=== PATIENT | male | born 1955 | race Caucasian/White ===

== ENCOUNTER 2017-08-15 09:38 | Emergency (ER) | payer MEDICARE ==
[~2017-08-15] VITALS: Ht 180.3 cm; Wt 82.0 kg
[2017-08-15 09:51] VITALS: BP 136/62; PULSE 81; RESP 18; TEMP 98.6; O2SAT 97
[2017-08-15] MEDS ORDERED: NOVONP2 SQ (10:10)
[2017-08-15] MEDS ORDERED: GEMF600T PO (10:10)
[2017-08-15] MEDS ORDERED: LISI40TA PO (10:10)
[2017-08-15] MEDS ORDERED: CILO100T PO (10:10)
[2017-08-15] MEDS ORDERED: ALLO300T2 PO (10:10)
[2017-08-15] MEDS ORDERED: METF500T PO (10:10)
[2017-08-15] MEDS ORDERED: ASPI81CH6 CHEW (10:10)
[2017-08-15] MEDS ORDERED: NOVO7030P2 SQ (10:10)
[2017-08-15] MEDS ORDERED: ATOR40TA16 PO (10:10)
[2017-08-15] MEDS ORDERED: METO100T PO (10:10)
[2017-08-15] MEDS ORDERED: SODIUM CHLORIDE 0.9% FLUSH 10 ML FLUSH IV FLUSH PRN (10:30)
[2017-08-15 10:37] VITALS: RESP 16; O2SAT 95
[2017-08-15 10:54] LABS: AUTOMATED NEUTROPHIL # 6.9 TH/MM3 (1.8-7.7); BASOPHIL # 0.1 TH/MM3 (0-0.2); BASOPHIL % 0.6 % (0.0-2.0); EOSINOPHIL # 0.1 TH/MM3 (0-0.4); EOSINOPHIL % 0.8 % (0.0-4.0); HEMATOCRIT 38.6 % (39.0-51.0); HEMOGLOBIN 13.3 GM/DL (13.0-17.0); LYMPH % 15.2 % (9.0-44.0); LYMPHOCYTE # 1.4 TH/MM3 (1.0-4.8); MEAN CELL VOLUME 89.5 FL (80.0-100.0); MEAN CORPUSCULAR HEMOGLOBIN 30.9 PG (27.0-34.0); MEAN CORPUSCULAR HGB CONC 34.6 % (32.0-36.0); MEAN PLATELET VOLUME 8.7 FL (7.0-11.0); MONO % 10.6 % (0.0-8.0); NEUT % 72.8 % (16.0-70.0); PLATELET COUNT 186 TH/MM3 (150-450); RED BLOOD COUNT 4.31 MIL/MM3 (4.50-5.90); RED CELL DISTRIBUTION WIDTH 14.7 % (11.6-17.2); WHITE BLOOD COUNT 9.5 TH/MM3 (4.0-11.0)
[2017-08-15 11:16] LABS: BICARBONATE 22.5 MEQ/L (21.0-32.0); CALCIUM 8.3 MG/DL (8.5-10.1); CREATININE 1.1 MG/DL (0.60-1.30)
[2017-08-15] MEDS ORDERED: SODIUM CHLOR 0.9% 1000 ML INJ 1,000 ML IV ONE (11:30)
[2017-08-15] MEDS ORDERED: IOHEXOL 350 MG/ML 10 ML VIAL (for RAD DIAG) IVCONTRAST ONE (11:56)
[2017-08-15] MEDS ORDERED: CIPROFLOXACIN 400 MG PREMIX 200 ML IV ONE (12:00)
--- NOTE | 2017-08-15 12:20 | PD ---
HPI Chief Complaint: Facial Pain or Swelling Time Seen by Provider: 10:19 Travel History International Travel<30 days: No Contact w/Intl Traveler<30days: No Traveled to known affect area: No History of Present Illness HPI Patient is a 62 year old male diabetic presents to the ER with a two day history of left sided facial swelling redness and pain. Denies discharge from the left ear. Denies fever. 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 States symptoms for 2 days , worsening, left face, context as above. PFSH Past Medical History Asthma: Yes Cardiovascular Problems: Yes High Cholesterol: Yes COPD: Yes Diabetes: Yes Patient Takes Glucophage: Yes Gout: Yes Hypertension: Yes Medical other: Yes (PAD) Myocardial Infarction: Yes Triglycerides - High: Yes Tetanus Vaccination: < 5 Years Past Surgical History Other Surgery: Yes Social History Alcohol Use: Yes Tobacco Use: Yes Substance Use: No Allergies-Medications (Allergen,Severity, Reaction): Coded Allergies: Penicillins (Verified Allergy, Severe, 08/15/17) Reported Meds & Prescriptions Reported Meds & Active Scripts Active Ciprodex Otic Drops (Ciprofloxacin-Dexamethasone Otic Drops) 0.3-0.1% Susp 4 Drop LEFT EAR BID Doxycycline Hyclate 100 Mg Cap 100 Mg PO BID 7 Days Cipro (Ciprofloxacin HCl) 500 Mg Tab 500 Mg PO BID 7 Days Reported Novolin N Inj (Insulin Human NPH) 1,000 Unit/10 Ml Vial 20 Units SQ HS Novolin 70-30 Inj (Insulin Human Isoph/Insulin Regular) 1,000 Unit/10 Ml Vial 1 Units SQ Atorvastatin (Atorvastatin Calcium) 40 Mg Tab 40 Mg PO HS Allopurinol 300 Mg Tab 300 Mg PO DAILY Lisinopril 40 Mg Tab 40 Mg PO DAILY Aspirin Low Dose (Aspirin) 81 Mg Chew 81 Mg CHEW DAILY Metformin (Metformin HCl) 500 Mg Tab 500 Mg PO DAILY With a meal Metoprolol Tartrate 100 Mg Tab 100 Mg PO DAILY Cilostazol 100 Mg Tab 100 Mg PO BID Gemfibrozil 600 Mg Tab 600 Mg PO BIDAC Take 30 minutes prior to breakfast and dinner. Review of Systems Except as stated in HPI: all other systems reviewed are Neg Physical Exam Narrative GENERAL: Well-developed well-nourished no obvious distress. SKIN: Left side of the face particularly dependent does have some induration and erythema about it. Appears to bridge up right up to the lateral canthus about a centimeter away. There is some progression posteriorly but this is not as impressive. There is no obvious mastoid tenderness and probably just tenderness to superficial palpation at this site. HEAD: Atraumatic. Normocephalic. EYES: Pupils equal and round. No scleral icterus. No injection or drainage. ENT: No nasal bleeding or discharge. Mucous membranes pink and moist. Left ear canal is patent but there is only some minimal erythema around the external most ear canal. No discharge seen, the TMs are clear bilaterally. Right ear canals on affected. The entire pin on the left side is erythematous and indurated. NECK: Trachea midline. No JVD. CARDIOVASCULAR: Regular rate and rhythm. No murmur appreciated. RESPIRATORY: No accessory muscle use. Clear to auscultation. Breath sounds equal bilaterally. GASTROINTESTINAL: Abdomen soft, non-tender, nondistended. Hepatic and splenic margins not palpable. MUSCULOSKELETAL: No obvious deformities. No clubbing. No cyanosis. No edema. NEUROLOGICAL: Awake and alert. No obvious cranial nerve deficits. Motor grossly within normal limits. Normal speech. PSYCHIATRIC: Appropriate mood and affect; insight and judgment normal. Data Data Last Documented VS Vital Signs Date Time Temp Pulse Resp B/P (MAP) Pulse Ox O2 Delivery O2 Flow Rate FiO2 08/15/17 10:37 16 95 Room Air 08/15/17 09:51 98.6 81 136/62 (86) Orders Orders Basic Metabolic Panel (Bmp) (08/15/17 10:19) Complete Blood Count With Diff (08/15/17 10:19) Lactic Acid (08/15/17 10:19) Iv Access Insert/Monitor (08/15/17 10:19) Ecg Monitoring (08/15/17 10:19) Oximetry (08/15/17 10:19) Sodium Chloride 0.9% Flush (Ns Flush) (08/15/17 10:30) Ct Temporal Bone W Iv Contrast (08/15/17 10:22) Sodium Chlor 0.9% 1000 Ml Inj (Ns 1000 M (08/15/17 11:30) Ciprofloxacin 400 Mg Premix (Cipro 400 M (08/15/17 12:00) Iohexol 350 Inj (Omnipaque 350 Inj) (08/15/17 11:56) Dexamethasone Inj (Decadron Inj) (08/15/17 15:00) Sulfamet-Trimeth Ds 800-160 Mg (Bactrim (08/15/17 15:00) Doxycycline (Vibramycin) (08/15/17 15:00) Ed Discharge Order (08/15/17 14:57) Labs Laboratory Tests Test 08/15/17 10:23 08/15/17 10:31 White Blood Count 9.5 TH/MM3 Red Blood Count 4.31 MIL/MM3 Hemoglobin 13.3 GM/DL Hematocrit 38.6 % Mean Corpuscular Volume 89.5 FL Mean Corpuscular Hemoglobin 30.9 PG Mean Corpuscular Hemoglobin Concent 34.6 % Red Cell Distribution Width 14.7 % Platelet Count 186 TH/MM3 Mean Platelet Volume 8.7 FL Neutrophils (%) (Auto) 72.8 % Lymphocytes (%) (Auto) 15.2 % Monocytes (%) (Auto) 10.6 % Eosinophils (%) (Auto) 0.8 % Basophils (%) (Auto) 0.6 % Neutrophils # (Auto) 6.9 TH/MM3 Lymphocytes # (Auto) 1.4 TH/MM3 Monocytes # (Auto) 1.0 TH/MM3 Eosinophils # (Auto) 0.1 TH/MM3 Basophils # (Auto) 0.1 TH/MM3 CBC Comment DIFF FINAL Differential Comment Blood Urea Nitrogen 8 MG/DL Creatinine 1.10 MG/DL Random Glucose 266 MG/DL Calcium Level 8.3 MG/DL Sodium Level 137 MEQ/L Potassium Level 3.5 MEQ/L Chloride Level 104 MEQ/L Carbon Dioxide Level 22.5 MEQ/L Anion Gap 11 MEQ/L Estimat Glomerular Filtration Rate 67 ML/MIN Lactic Acid Level 2.2 mmol/L [facility] Medical Decision Making Medical Screen Exam Complete: Yes Emergency Medical Condition: Yes Differential Diagnosis Severe otitis externa, necrotizing fasciitis highly unlikely, facial cellulitis. Narrative Course Patient room to the emergency department, given his history think a CT of the face is warranted as well as a temporal bones to rule out mastoiditis: Last 24 hours Impressions Temporal Bone CT 08/15/17 1022 Signed Impressions: Service Date/Time: Tuesday, August 15, 2017 11:23 - CONCLUSION: 1. 2 cm enhancing mass left temporomandibular region located between the condylar head and inferior acoustic meatus, possibly parotid in origin. 2. Mild subcutaneous soft tissue thickening in the left temporal region. 3. Evidence of chronic bilateral mastoid disease with sclerosis of the mid air cells and fatty replacement of the temporal tips; the disease process is symmetrical bilaterally. Antoine Patrick MD Given the CT readings have very low index suspicion for mastoiditis. I discussed the findings with the patient and he actually states the cellulitis started anterior to the pinna and then spread into the pit itself. This may actually represent a cellulitis instead of an external otitis however its appearance now is more in line with an external otitis. The patient was discussed with Dr. Mckeon who states that the massive discussed in the CT read may actually be a lymph node this is a common place for lymph nodes to develop from external otitis. He agrees with p.o. and drop antibiotics, also suggested that the patient will tolerate a dose of Decadron. This was discussed with him and he would like to hold off steroids his last time he had a dose of steroids his sugar was incredibly hard to control over the next several months. Discussed that Dr. Stone would like to see him in the office either tomorrow or the next day and if he is unable to follow-up he will follow-up with me in 2 days as I am on shift again and I will recheck him. He verbalized understanding and agreement I also discussed return to ED criteria. He will follow his sugar closely and he was also counseled on smoking cessation. Diagnosis Primary Impression: Facial cellulitis Additional Impression: Otitis externa Referrals: Scott Mckeon MD Med/Other Pt SpecificInfo: Prescription(s) given Scripts Ciprofloxacin-Dexamethasone Otic Drops (Ciprodex Otic Drops) 0.3-0.1% Susp 4 DROP LEFT EAR BID for Infection, #1 BOTTLE 0 Refills Prov: Raul Aquino MD 08/15/17 Doxycycline Hyclate (Doxycycline Hyclate) 100 Mg Cap 100 MG PO BID for Infection for 7 Days, #14 CAP 0 Refills Prov: Raul Aquino MD 08/15/17 Ciprofloxacin (Cipro) 500 Mg Tab 500 MG PO BID for Infection for 7 Days, #14 TAB 0 Refills Prov: Raul Aquino MD 08/15/17 Disposition: 01 DISCHARGE HOME Condition: Stable Raul Aquino MD August 15, 2017 12:20
--- NOTE | 2017-08-15 12:24 | RADRPT ---
EXAM DATE/TIME: 08/15/2017 11:23 [facility] COMPARISON: No previous studies available for comparison. INDICATIONS : Left sided facial swelling for two days. IV CONTRAST: 86 cc Omnipaque 350 (iohexol) IV RADIATION DOSE: 59.43 CTDIvol (mGy) MEDICAL HISTORY : Hypertension. diabetes SURGICAL HISTORY : None. ENCOUNTER: Initial ACUITY: 1 day PAIN SCALE: 5/10 LOCATION: Left facial TECHNIQUE: Volumetric scanning of the temporal bone was performed. Using automated exposure control and adjustm ent of the mA and/or kV according to patient size, radiation dose was kept as low as reasonably achie vable to obtain optimal diagnostic quality images. DICOM format image data is available electronicall y for review and comparison. FINDINGS: There is mild asymmetric soft tissue thickening of the subcutaneous tissues about the left temporal r egion, measuring up to 8 mm in thickness. No focal fluid collections seen. There is 2.1 x 1.6 cm so ft tissue mass with fairly homogeneous enhancement located inferior to the left external acoustic yuliya tus and extending anterior to the posterior aspect of the TMJ. This appears to be located within the inferior portion of the left parotid gland.. No soft tissue density in the external acoustic areas bilaterally. There is moderately dense sclerosis in the mastoids bilaterally replacing many of the lateral and inf erior air cells. There is also fatty replacement without septa in the inferior mastoid tips bilatera lly. The middle and inner ear structures are symmetric and grossly intact bilaterally. CONCLUSION: 1. 2 cm enhancing mass left temporomandibular region located between the condylar head and inferior a coustic meatus, possibly parotid in origin. 2. Mild subcutaneous soft tissue thickening in the left temporal region. 3. Evidence of chronic bilateral mastoid disease with sclerosis of the mid air cells and fatty replac ement of the temporal tips; the disease process is symmetrical bilaterally. Antoine Patrick MD on August 15, 2017 at 12:14 Board Certified Radiologist. This report was verified electronically.
[2017-08-15] MEDS ORDERED: DOXY100C PO (14:55)
[2017-08-15] MEDS ORDERED: CIPR0.3S LEFT EAR (14:55)
[2017-08-15] MEDS ORDERED: CIPR-9 PO (14:55)
[2017-08-15] MEDS ORDERED: SULFAMETHOXAZOLE-TRIMETHOPRIM DS 800-160 MG TAB PO ONE (15:00)
[2017-08-15] MEDS ORDERED: DEXAMETHASONE SOD PHOS 4 MG/ML VIAL IV PUSH ONE (15:00)
[2017-08-15] MEDS ORDERED: DOXYCYCLINE HYCLATE 100 MG CAP PO ONE (15:00)
== END 2017-08-15 16:21 | disposition home or self-care (01) ==
LOC: NEPC 09:38
DX: L03.211 Cellulitis of face (principal); H60.92 Unspecified otitis externa, left ear; E78.00 Pure hypercholesterolemia, unspecified; J44.9 Chronic obstructive pulmonary disease, unspecified; E11.9 Type 2 diabetes mellitus without complications; I10 Essential (primary) hypertension; I25.2 Old myocardial infarction; M10.9 Gout, unspecified; Z79.4 Long term (current) use of insulin; Z79.84 Long term (current) use of oral hypoglycemic drugs; Z79.82 Long term (current) use of aspirin
CPT/HCPCS: 70481; 80048; 83605; 85025; 96365; 99285; J0744; J7030; Q9967

== ENCOUNTER 2018-01-30 01:37 | Observation (INO) ==
[2018-01-30 06:12] LABS: Baso # (Auto) 0.1 th/mm3 (0.0-0.2); Baso % (Auto) 0.8 % (0.0-2.0); Eos # (Auto) 0.2 th/mm3 (0.0-0.4); Eos % (Auto) 1.8 % (0.0-4.0); Hematocrit 41.1 % (39.0-51.0); Hemoglobin 14.4 gm/dL (13.0-17.0); Lymph # (Auto) 2.4 th/mm3 (1.0-4.8); Lymph % (Auto) 23.1 % (9.0-44.0); Mean Corpuscular HGB Conc 34.9 % (32.0-36.0); Mean Corpuscular Hemoglobin 32.5 pg (27.0-34.0); Mean Corpuscular Volume 93.2 fL (80.0-100.0); Mean Platelet Volume 9.1 fL (7.0-11.0); Mono # (Auto) 0.7 th/mm3 (0.0-0.9); Mono % (Auto) 6.2 % (0.0-8.0); Neut # (Auto) 7.2 th/mm3 (1.8-7.7); Neut % (Auto) 68.1 % (16.0-70.0); Platelet Count 236 th/mm3 (150-450); Red Blood Count 4.41 mil/mm3 (4.50-5.90); Red Cell Distribution Width 14.4 % (11.6-17.2); White Blood Count 10.5 th/mm3 (4.0-11.0)
[2018-01-30 06:24] LABS: Activated Partial Thrombo Time 28.9 sec (23.4-31.7); Prothrombin Time 10.1 sec (9.8-11.6)
[2018-01-30 06:31] LABS: Anion Gap 12 meq/L (5-15); Blood Urea Nitrogen 26 mg/dL (7-18); Calcium 8.8 mg/dL (8.5-10.1); Carbon Dioxide 27.9 meq/L (21.0-32.0); Chloride 95 meq/L (98-107); Glomerular Filtration Rate 40 mL/min (>89); Glucose,Random 123 mg/dL (74-106); Potassium 3.8 meq/L (3.5-5.1); Sodium 135 meq/L (136-145)
[2018-01-30 06:34] LABS: Creatine Kinase 175 U/L (39-308)
[2018-01-30 06:36] LABS: Alcohol 3 mg/dL (0-5)
--- NOTE | 2018-01-30 06:36 | CT ---
EXAM DATE: 01/30/2018 6:26 AM EST AGE/SEX: 62 years / Male INDICATIONS: Left sided numbness. CLINICAL DATA: This is the patient's initial encounter. Patient reports that signs and symptoms have been present for 1 day and indicates a pain score of 0/10. MEDICAL/SURGICAL HISTORY: Cardiovascular disease. Hypertension. Chronic obstructive pulmonary dis ease. Diabetes None. RADIATION DOSE: 66.34 CTDI (mGy) COMPARISON: [facility] [place], CT TEMPORAL BONE W CONTRAST, 08/15/2017. . TECHNIQUE: CT of the head without contrast. Using automated exposure control and adjustment of the mA and/or kV according to patient size, radiation dose was kept as low as reasonably achievable to ob tain optimal diagnostic quality images. DICOM format image data is available electronically for revi ew and comparison. FINDINGS: Cerebrum: The ventricles are normal for age. No evidence of midline shift, mass lesion, hemorrhage or acute infarction. No extraaxial fluid collections are seen. Posterior Fossa: The cerebellum and brainstem are intact. The 4th ventricle is midline. The cerebe llopontine angle is unremarkable. Extracranial: The visualized portion of the orbits is intact. Skull: The calvaria is intact. No evidence of skull fracture. CONCLUSION: Negative CT Head non contrast. . Electronically signed by: Christian Rabago MD 01/30/2018 6:34 AM EST
[2018-01-30 06:49] LABS: Creatine Kinase MB 3.6 ng/mL (0.5-3.6)
[2018-01-30] MEDS ORDERED: Sod Chloride 0.9% Inj 1,000 ML IV.SIG SCH (08:00)
--- NOTE | 2018-01-30 08:13 | ED ---
HPI General Chief complaint: Medical Clearance Stated complaint: Vomiting Time Seen by Provider: 01/30/18 04:39 Source: patient and family Mode of arrival: ambulatory Limitations: no limitations History of Present Illness HPI narrative: 62-year-old male came to the emergency room with history of nausea and right upper extremity tingling that started at around 10 PM while him and his were in a restaurant eating. They went home and his checked his blood pressure. As per the patient and his his blood pressure was 70s-80s systolic after they checked 4 times. This concerned the patient and his drove him to the emergency room. He says on his way he vomited once. He has been nauseous still. His vital signs upon arrival were within normal limit. Patient says currently his tingling is gone. He also says that Wednesday he had tingling and numbness on the left side of his body from head to toe that lasted for 30 minutes. Patient has history of diabetes and hypertension and he is self managing it currently. No chest pain or shortness of breath. Patient drinks alcohol on the weekends and smokes cigarettes. Related Data Home Medications Medication Instructions Recorded Confirmed Aspir-81 81 mg PO DAILY 01/30/18 01/30/18 allopurinol 300 mg PO DAILY 01/30/18 01/30/18 atorvastatin 40 mg PO HS 01/30/18 01/30/18 cilostazol 100 mg PO BID 01/30/18 01/30/18 gemfibrozil 600 mg PO HS 01/30/18 01/30/18 insulin NPH and regular human 35 unit SUBCUT DAILY 01/30/18 01/30/18 [Novolin 70/30 U-100 Insulin] insulin NPH isoph U-100 human 35 unit SUBCUT HS 01/30/18 01/30/18 [Novolin N NPH U-100 Insulin] metoprolol succinate 100 mg PO DAILY 01/30/18 01/30/18 Previous Rx's Medication Instructions Recorded clopidogrel [Plavix] 75 mg PO DAILY 30 Days #30 tab 01/31/18 lisinopril 20 mg PO DAILY #30 tab 02/01/18 Allergies Allergy/AdvReac Type Severity Reaction Status Date / Time Penicillins Allergy Severe Verified 08/15/17 10:03 Review of Systems ROS: all other systems reviewed are negative Gastrointestinal Reports nausea Neurologic Reports numbness [facility] Medical History Medical History COPD (chronic obstructive pulmonary disease) (Acute) Diabetes (Acute) HTN (hypertension) (Acute) Hx of gangrene (Acute) Hx of myocardial infarction (Acute) Hyperlipemia (Acute) Family History Family History Mother Metastatic breast cancer Father Hypertension Father Diabetes Social History Social History Substance History: No History of Abuse Second Hand Smoke Exposure: No Smoking Status: Current every day smoker Tobacco Type: Cigarettes and Cigars (5-6 small cigars daily) How Often Do You Have a Drink Containing Alcohol: 2 to 3 times a week Recent Travel in [facility] within the Last 8 Weeks: No Recent Out of Country Travel within the Last 8 Weeks: No Immunization History Tetanus Immunization: Unsure Exam Narrative Exam Narrative: GENERAL: Awake, alert, anxious, no obvious distress SKIN: Focused skin assessment warm/dry. HEAD: Atraumatic. Normocephalic. EYES: Pupils equal and round. No scleral icterus. No injection or drainage. ENT: No nasal bleeding or discharge. Mucous membranes pink and moist. NECK: Trachea midline. No JVD. CARDIOVASCULAR: Regular rate and rhythm. No murmur appreciated. RESPIRATORY: No accessory muscle use. Clear to auscultation. Breath sounds equal bilaterally. GASTROINTESTINAL: Abdomen soft, non-tender, nondistended. Hepatic and splenic margins not palpable. MUSCULOSKELETAL: No obvious deformities. No clubbing. No cyanosis. No edema. NEUROLOGICAL: Awake and alert. No obvious cranial nerve deficits. Motor grossly within normal limits. Normal speech. PSYCHIATRIC: Appropriate mood and affect; insight and judgment normal. Course Initial Documented Vital Signs Temperature 97.6 F 01/30/18 01:43 EDT Pulse Rate 81 01/30/18 01:43 EDT Respiratory Rate 16 01/30/18 01:43 EDT Blood Pressure 129/69 01/30/18 01:43 EDT Pulse Oximetry 98 01/30/18 01:43 EDT Last Documented Vital Signs Temperature 97.4 F L 02/01/18 08:00 Pulse Rate 64 02/01/18 08:00 Respiratory Rate 18 02/01/18 08:00 Blood Pressure 162/87 H 02/01/18 09:51 Pulse Oximetry 98 02/01/18 08:00 Medical Decision Making MDM Narrative Medical decision making narrative: 7 AM patient was worked up for TIA. Blood test results are back and within acceptable limit. His BUN/creatinine is slightly elevated than his last lab result. CT head is negative. I decided to admit him for observation. Patient was given 1 L of IV fluid bolus and IV Zofran. Medical Screen Exam Complete: Yes Emergency Medical Condition: Yes Lab Data Result diagrams: 01/31/18 03:12 01/31/18 03:12 Lab Results 01/30/18 01/30/18 01/30/18 Range/Units 05:54 05:54 05:54 WBC 10.5 (4.0-11.0) th/mm3 RBC 4.41 L (4.50-5.90) mil/mm3 Hgb 14.4 (13.0-17.0) gm/dL Hct 41.1 (39.0-51.0) % MCV 93.2 (80.0-100.0) fL MCH 32.5 (27.0-34.0) pg MCHC 34.9 (32.0-36.0) % RDW 14.4 (11.6-17.2) % Plt Count 236 (150-450) th/mm3 MPV 9.1 (7.0-11.0) fL Neut % (Auto) 68.1 (16.0-70.0) % Lymph % (Auto) 23.1 (9.0-44.0) % Preston % (Auto) 6.2 (0.0-8.0) % Eos % (Auto) 1.8 (0.0-4.0) % Baso % (Auto) 0.8 (0.0-2.0) % Neut # (Auto) 7.2 (1.8-7.7) th/mm3 Lymph # (Auto) 2.4 (1.0-4.8) th/mm3 Preston # (Auto) 0.7 (0.0-0.9) th/mm3 Eos # (Auto) 0.2 (0.0-0.4) th/mm3 Baso # (Auto) 0.1 (0.0-0.2) th/mm3 WBC Differential . Differential Comment Auto diff final PT 10.1 (9.8-11.6) sec INR 1.0 Ratio APTT 28.9 (23.4-31.7) sec Sodium 135 L (136-145) meq/L Potassium 3.8 (3.5-5.1) meq/L Chloride 95 L (98-107) meq/L Carbon Dioxide 27.9 (21.0-32.0) meq/L Anion Gap 12 (5-15) meq/L BUN 26 H (7-18) mg/dL Creatinine 1.74 H (0.60-1.30) mg/dL Estimated GFR 40 L (>89) mL/min POC Glucose (68-110) mg/dl Random Glucose 123 H (74-106) mg/dL Hemoglobin A1c (4.3-6.0) % Calcium 8.8 (8.5-10.1) mg/dL Total Bilirubin (0.2-1.0) mg/dL AST (15-37) U/L ALT (12-78) U/L Alkaline Phosphatase (45-117) U/L Total Creatine Kinase 175 (39-308) U/L CK-MB (CK-2) 3.6 (0.5-3.6) ng/mL Troponin I Less than 0.02 L (0.02-0.05) ng/mL Total Protein (6.4-8.2) g/dL Albumin (3.4-5.0) g/dL Triglycerides (42-150) mg/dL Cholesterol (120-200) mg/dL LDL Cholesterol, Calc (0-99) mg/dL HDL Cholesterol (40.0-60.0) mg/dL Cholesterol/HDL Ratio Ratio TSH (0.358-3.740) uIU/mL Serum Alcohol 3 (0-5) mg/dL 01/30/18 01/30/18 01/30/18 Range/Units 05:54 05:54 05:54 WBC (4.0-11.0) th/mm3 RBC (4.50-5.90) mil/mm3 Hgb (13.0-17.0) gm/dL Hct (39.0-51.0) % MCV (80.0-100.0) fL MCH (27.0-34.0) pg MCHC (32.0-36.0) % RDW (11.6-17.2) % Plt Count (150-450) th/mm3 MPV (7.0-11.0) fL Neut % (Auto) (16.0-70.0) % Lymph % (Auto) (9.0-44.0) % Preston % (Auto) (0.0-8.0) % Eos % (Auto) (0.0-4.0) % Baso % (Auto) (0.0-2.0) % Neut # (Auto) (1.8-7.7) th/mm3 Lymph # (Auto) (1.0-4.8) th/mm3 Preston # (Auto) (0.0-0.9) th/mm3 Eos # (Auto) (0.0-0.4) th/mm3 Baso # (Auto) (0.0-0.2) th/mm3 WBC Differential Differential Comment PT (9.8-11.6) sec INR Ratio APTT (23.4-31.7) sec Sodium (136-145) meq/L Potassium (3.5-5.1) meq/L Chloride (98-107) meq/L Carbon Dioxide (21.0-32.0) meq/L Anion Gap (5-15) meq/L BUN (7-18) mg/dL Creatinine (0.60-1.30) mg/dL Estimated GFR (>89) mL/min POC Glucose (68-110) mg/dl Random Glucose (74-106) mg/dL Hemoglobin A1c 7.4 H (4.3-6.0) % Calcium (8.5-10.1) mg/dL Total Bilirubin (0.2-1.0) mg/dL AST (15-37) U/L ALT (12-78) U/L Alkaline Phosphatase (45-117) U/L Total Creatine Kinase (39-308) U/L CK-MB (CK-2) (0.5-3.6) ng/mL Troponin I (0.02-0.05) ng/mL Total Protein (6.4-8.2) g/dL Albumin (3.4-5.0) g/dL Triglycerides 327 H (42-150) mg/dL Cholesterol 130 (120-200) mg/dL LDL Cholesterol, Calc 28 (0-99) mg/dL HDL Cholesterol 36.9 L (40.0-60.0) mg/dL Cholesterol/HDL Ratio 3.52 Ratio TSH 1.990 (0.358-3.740) uIU/mL Serum Alcohol (0-5) mg/dL 01/30/18 01/30/18 01/30/18 Range/Units 12:34 15:29 17:32 WBC (4.0-11.0) th/mm3 RBC (4.50-5.90) mil/mm3 Hgb (13.0-17.0) gm/dL Hct (39.0-51.0) % MCV (80.0-100.0) fL MCH (27.0-34.0) pg MCHC (32.0-36.0) % RDW (11.6-17.2) % Plt Count (150-450) th/mm3 MPV (7.0-11.0) fL Neut % (Auto) (16.0-70.0) % Lymph % (Auto) (9.0-44.0) % Preston % (Auto) (0.0-8.0) % Eos % (Auto) (0.0-4.0) % Baso % (Auto) (0.0-2.0) % Neut # (Auto) (1.8-7.7) th/mm3 Lymph # (Auto) (1.0-4.8) th/mm3 Preston # (Auto) (0.0-0.9) th/mm3 Eos # (Auto) (0.0-0.4) th/mm3 Baso # (Auto) (0.0-0.2) th/mm3 WBC Differential Differential Comment PT (9.8-11.6) sec INR Ratio APTT (23.4-31.7) sec Sodium (136-145) meq/L Potassium (3.5-5.1) meq/L Chloride (98-107) meq/L Carbon Dioxide (21.0-32.0) meq/L Anion Gap (5-15) meq/L BUN (7-18) mg/dL Creatinine (0.60-1.30) mg/dL Estimated GFR (>89) mL/min POC Glucose 165 H 239 H (68-110) mg/dl Random Glucose (74-106) mg/dL Hemoglobin A1c (4.3-6.0) % Calcium (8.5-10.1) mg/dL Total Bilirubin (0.2-1.0) mg/dL AST (15-37) U/L ALT (12-78) U/L Alkaline Phosphatase (45-117) U/L Total Creatine Kinase 134 (39-308) U/L CK-MB (CK-2) 3.1 (0.5-3.6) ng/mL Troponin I Less than 0.02 L (0.02-0.05) ng/mL Total Protein (6.4-8.2) g/dL Albumin (3.4-5.0) g/dL Triglycerides (42-150) mg/dL Cholesterol (120-200) mg/dL LDL Cholesterol, Calc (0-99) mg/dL HDL Cholesterol (40.0-60.0) mg/dL Cholesterol/HDL Ratio Ratio TSH (0.358-3.740) uIU/mL Serum Alcohol (0-5) mg/dL 01/30/18 01/30/18 01/31/18 Range/Units 17:56 20:20 03:12 WBC 6.5 (4.0-11.0) th/mm3 RBC 3.91 L (4.50-5.90) mil/mm3 Hgb 12.7 L (13.0-17.0) gm/dL Hct 37.3 L (39.0-51.0) % MCV 95.3 (80.0-100.0) fL MCH 32.4 (27.0-34.0) pg MCHC 34.0 (32.0-36.0) % RDW 14.3 (11.6-17.2) % Plt Count 186 (150-450) th/mm3 MPV 9.4 (7.0-11.0) fL Neut % (Auto) 51.4 (16.0-70.0) % Lymph % (Auto) 33.8 (9.0-44.0) % Preston % (Auto) 9.4 H (0.0-8.0) % Eos % (Auto) 4.5 H (0.0-4.0) % Baso % (Auto) 0.9 (0.0-2.0) % Neut # (Auto) 3.3 (1.8-7.7) th/mm3 Lymph # (Auto) 2.2 (1.0-4.8) th/mm3 Preston # (Auto) 0.6 (0.0-0.9) th/mm3 Eos # (Auto) 0.3 (0.0-0.4) th/mm3 Baso # (Auto) 0.1 (0.0-0.2) th/mm3 WBC Differential . Differential Comment Auto diff final PT (9.8-11.6) sec INR Ratio APTT (23.4-31.7) sec Sodium 137 (136-145) meq/L Potassium 3.7 (3.5-5.1) meq/L Chloride 102 (98-107) meq/L Carbon Dioxide 28.0 (21.0-32.0) meq/L Anion Gap 7 (5-15) meq/L BUN 24 H (7-18) mg/dL Creatinine 1.29 (0.60-1.30) mg/dL Estimated GFR 56 L (>89) mL/min POC Glucose 182 H (68-110) mg/dl Random Glucose 208 H (74-106) mg/dL Hemoglobin A1c (4.3-6.0) % Calcium 8.0 L D (8.5-10.1) mg/dL Total Bilirubin (0.2-1.0) mg/dL AST (15-37) U/L ALT (12-78) U/L Alkaline Phosphatase (45-117) U/L Total Creatine Kinase 138 (39-308) U/L CK-MB (CK-2) 2.8 (0.5-3.6) ng/mL Troponin I Less than 0.02 L (0.02-0.05) ng/mL Total Protein (6.4-8.2) g/dL Albumin (3.4-5.0) g/dL Triglycerides (42-150) mg/dL Cholesterol (120-200) mg/dL LDL Cholesterol, Calc (0-99) mg/dL HDL Cholesterol (40.0-60.0) mg/dL Cholesterol/HDL Ratio Ratio TSH (0.358-3.740) uIU/mL Serum Alcohol (0-5) mg/dL 01/31/18 01/31/18 01/31/18 Range/Units 03:12 07:25 12:31 WBC (4.0-11.0) th/mm3 RBC (4.50-5.90) mil/mm3 Hgb (13.0-17.0) gm/dL Hct (39.0-51.0) % MCV (80.0-100.0) fL MCH (27.0-34.0) pg MCHC (32.0-36.0) % RDW (11.6-17.2) % Plt Count (150-450) th/mm3 MPV (7.0-11.0) fL Neut % (Auto) (16.0-70.0) % Lymph % (Auto) (9.0-44.0) % Preston % (Auto) (0.0-8.0) % Eos % (Auto) (0.0-4.0) % Baso % (Auto) (0.0-2.0) % Neut # (Auto) (1.8-7.7) th/mm3 Lymph # (Auto) (1.0-4.8) th/mm3 Preston # (Auto) (0.0-0.9) th/mm3 Eos # (Auto) (0.0-0.4) th/mm3 Baso # (Auto) (0.0-0.2) th/mm3 WBC Differential Differential Comment PT (9.8-11.6) sec INR Ratio APTT (23.4-31.7) sec Sodium 143 (136-145) meq/L Potassium 4.0 (3.5-5.1) meq/L Chloride 109 H (98-107) meq/L Carbon Dioxide 26.7 (21.0-32.0) meq/L Anion Gap 7 (5-15) meq/L BUN 18 (7-18) mg/dL Creatinine 1.04 (0.60-1.30) mg/dL Estimated GFR 72 L (>89) mL/min POC Glucose 160 H 248 H (68-110) mg/dl Random Glucose 136 H (74-106) mg/dL Hemoglobin A1c (4.3-6.0) % Calcium 8.3 L (8.5-10.1) mg/dL Total Bilirubin 0.4 (0.2-1.0) mg/dL AST 16 (15-37) U/L ALT 20 (12-78) U/L Alkaline Phosphatase 75 (45-117) U/L Total Creatine Kinase (39-308) U/L CK-MB (CK-2) (0.5-3.6) ng/mL Troponin I (0.02-0.05) ng/mL Total Protein 6.5 (6.4-8.2) g/dL Albumin 3.0 L (3.4-5.0) g/dL Triglycerides (42-150) mg/dL Cholesterol (120-200) mg/dL LDL Cholesterol, Calc (0-99) mg/dL HDL Cholesterol (40.0-60.0) mg/dL Cholesterol/HDL Ratio Ratio TSH (0.358-3.740) uIU/mL Serum Alcohol (0-5) mg/dL 01/31/18 01/31/18 02/01/18 Range/Units 17:25 20:52 08:36 WBC (4.0-11.0) th/mm3 RBC (4.50-5.90) mil/mm3 Hgb (13.0-17.0) gm/dL Hct (39.0-51.0) % MCV (80.0-100.0) fL MCH (27.0-34.0) pg MCHC (32.0-36.0) % RDW (11.6-17.2) % Plt Count (150-450) th/mm3 MPV (7.0-11.0) fL Neut % (Auto) (16.0-70.0) % Lymph % (Auto) (9.0-44.0) % Preston % (Auto) (0.0-8.0) % Eos % (Auto) (0.0-4.0) % Baso % (Auto) (0.0-2.0) % Neut # (Auto) (1.8-7.7) th/mm3 Lymph # (Auto) (1.0-4.8) th/mm3 Preston # (Auto) (0.0-0.9) th/mm3 Eos # (Auto) (0.0-0.4) th/mm3 Baso # (Auto) (0.0-0.2) th/mm3 WBC Differential Differential Comment PT (9.8-11.6) sec INR Ratio APTT (23.4-31.7) sec Sodium (136-145) meq/L Potassium (3.5-5.1) meq/L Chloride (98-107) meq/L Carbon Dioxide (21.0-32.0) meq/L Anion Gap (5-15) meq/L BUN (7-18) mg/dL Creatinine (0.60-1.30) mg/dL Estimated GFR (>89) mL/min POC Glucose 99 217 H 148 H (68-110) mg/dl Random Glucose (74-106) mg/dL Hemoglobin A1c (4.3-6.0) % Calcium (8.5-10.1) mg/dL Total Bilirubin (0.2-1.0) mg/dL AST (15-37) U/L ALT (12-78) U/L Alkaline Phosphatase (45-117) U/L Total Creatine Kinase (39-308) U/L CK-MB (CK-2) (0.5-3.6) ng/mL Troponin I (0.02-0.05) ng/mL Total Protein (6.4-8.2) g/dL Albumin (3.4-5.0) g/dL Triglycerides (42-150) mg/dL Cholesterol (120-200) mg/dL LDL Cholesterol, Calc (0-99) mg/dL HDL Cholesterol (40.0-60.0) mg/dL Cholesterol/HDL Ratio Ratio TSH (0.358-3.740) uIU/mL Serum Alcohol (0-5) mg/dL Imaging Data Radiologist's impression: Carotid Doppler Study 01/30/18 00:00 CONCLUSION: 1. Right Internal Carotid Artery: Moderate to severe plaque however there is no significant alteration in vascular velocity to indicate a greater than 50% stenosis. 2. Left Internal Carotid Artery: Moderate to severe plaque however there is no significant alteration in vascular velocity to indicate a greater than 50% stenosis. 3. Considering the amount of atherosclerotic vascular disease and symptomatology further evaluation with CTA carotid arteries should be considered. 4. Antegrade flow both vertebral arteries. Head MRI 01/30/18 00:00 CONCLUSION: 1. No evidence of acute infarct, hemorrhage, mass or edema. 2. Cerebral white matter hyperintensities characteristic of mild microvascular ischemic disease. 3. Otherwise normal evaluation. Head MRA 01/30/18 00:00 CONCLUSION: 1. Bilateral cavernous internal carotid artery luminal irregularity and stenosis most characteristic of atherosclerotic disease. There is at least moderate stenosis identified on the left. 2. High-grade focal stenosis at the origin of the left anterior cerebral artery. 3. Mild basilar atherosclerotic disease without significant stenosis. 4. Dominant left vertebral artery. Head CT 01/30/18 05:44 CONCLUSION: Negative CT Head non contrast. . Head CTA 01/31/18 00:00 CONCLUSION: 1. A1 segment of the left anterior cerebral artery has short segment nonfilling , probably a combination of thrombosis superimposed on atherosclerosis. A2 and distal segments fill normally bilaterally patent anterior communicating artery. 2. No other acute abnormalities are seen of the intracranial arteries. Neck CTA 01/31/18 00:00 CONCLUSION: 1. Significant calcific atherosclerotic disease along the aortic arch with moderate stenosis of the innominate origin and moderate to severe stenosis at the origin of the left common carotid artery which is in the 50-69% range. 2. Bilateral calcified carotid plaques with evidence of moderate stenosis in the 30-49% range. 3. No evidence of high-grade carotid bifurcation stenosis. 4. Asymmetric size of the vertebral arteries with the left vertebral artery being dominant. ECG Data Attestation: I personally reviewed and interpreted this ECG as follows: Interpretation: Twelve-lead EKG was reviewed by me. Normal sinus rhythm, left axis deviation, nonspecific ST-T wave changes, first-degree AV block. Heart rate of 77 bpm. Discharge Plan Discharge Disposition Patient Disposition: 30 Still Patient Discharge Condition Condition: Stable Discharge Order Discharge Orders: Discharge Order (Routine); Ordered 02/01/18 Ordered By: Bill Anglin Discharge Details Anticipated Discharge Date: 01/31/18 Discharge Comment: Dr. Eugene recommends continuing aspirin 81mg daily for 3 months WITH plavix, can stop aspirin after 3 months and continue taking Plavix. Physicians Team ED Provider: Missael Seth Primary Care Provider: Shai Chavez Attending Provider: Bill Anglin Other Providers: Vani Eugene Status ED Status: Left Department Discharge Information Discharge Date/Time: 01/30/18 10:13
[2018-01-30] MEDS ORDERED: Dextrose 50% in Water 50 ML Vial IV.PUSH PRN (08:31)
[2018-01-30] MEDS ORDERED: Bisacodyl 10 MG Supp RECTAL PRN (09:00)
--- NOTE | 2018-01-30 09:27 | US ---
EXAM DATE: 01/30/2018 9:16 AM EST AGE/SEX: 62 years / Male INDICATIONS: Transient ischemic attack. CLINICAL DATA: This is the patient's initial encounter. Patient reports that signs and symptoms have been present for 1 day and indicates a pain score of 0/10. MEDICAL/SURGICAL HISTORY: Chronic obstructive pulmonary disease. Hypertension. Diabetes. Gangr jess. Myocardial infarction. Hyperlipidemia. None. COMPARISON: No prior exams available for comparison. VELOCITY PARAMETERS: ICA/CCA Ratio: Right 1.3 , Left 0.8 ICA: Right 123.2 cm/sec, Left 75.8 cm/sec CCA: Right 95.9 cm/sec, Left 96.6 cm/sec ECA: Right 172.2 cm/sec, Left 113.9 cm/sec Vertebral: Right 29.6 cm/sec antegrade, Left 80.6 cm/sec antegrade FINDINGS: Right Carotid: Moderate to severe heterogeneous calcified arteriosclerotic plaque is visualized in t he common and internal carotid arteries. Spectral broadening is noted.. Left Carotid: Moderate to severe heterogeneous calcified arteriosclerotic plaque is visualized in th e common and internal carotid arteries.. Spectral broadening is noted. Other: None. CONCLUSION: 1. Right Internal Carotid Artery: Moderate to severe plaque however there is no significant alterati on in vascular velocity to indicate a greater than 50% stenosis. 2. Left Internal Carotid Artery: Moderate to severe plaque however there is no significant alteratio n in vascular velocity to indicate a greater than 50% stenosis. 3. Considering the amount of atherosclerotic vascular disease and symptomatology further evaluation with CTA carotid arteries should be considered. 4. Antegrade flow both vertebral arteries. Electronically signed by: Mark Anthony Doty MD 01/30/2018 9:26 AM EST
--- NOTE | 2018-01-30 10:14 | MR ---
EXAM DATE: 01/30/2018 10:09 AM EST AGE/SEX: 62 years / Male INDICATIONS: Left sided weakness. Resolved. CLINICAL DATA: This is the patient's initial encounter. Patient reports that signs and symptoms have been present for 1 day and indicates a pain score of 0/10. MEDICAL/SURGICAL HISTORY: Diabetes mellitus type II. . Orchiectomy. Hand ORIF. COMPARISON: C, MRA HEAD W/O CONTRAST, 01/30/2018. . TECHNIQUE: Multiplanar, multisequence examination of the brain was performed without contrast. FINDINGS: Cerebrum: The ventricles are normal for age. No evidence of midline shift, mass lesion, hemorrhage or acute infarction. No extraaxial fluid collections are seen. The pituitary gland and suprasellar cistern are normal in configuration. White Matter: A few scattered signal abnormalities are seen in the white matter. Posterior Fossa: The cerebellum and brainstem are intact. The 4th ventricle is midline. The cerebel lopontine angle is unremarkable. The cerebellar tonsils are normal in position. Diffusion Imaging: No focal areas of restricted diffusion are seen. No evidence of acute infarction . Extracranial: The visualized portions of the orbits and paranasal sinuses are unremarkable. CONCLUSION: 1. No evidence of acute infarct, hemorrhage, mass or edema. 2. Cerebral white matter hyperintensities characteristic of mild microvascular ischemic disease. 3. Otherwise normal evaluation. Electronically signed by: Mark Anthony Doty MD 01/30/2018 10:12 AM EST
--- NOTE | 2018-01-30 10:20 | MR ---
EXAM DATE: 01/30/2018 10:06 AM EST AGE/SEX: 62 years / Male INDICATIONS: Left sided weakness. Resolved. CLINICAL DATA: This is the patient's initial encounter. Patient reports that signs and symptoms have been present for 1 day and indicates a pain score of 0/10. MEDICAL/SURGICAL HISTORY: Diabetes mellitus type II. Hypertension. . Orchiectomy. Hand ORIF. COMPARISON: [facility] [place] HEAD W/O CONTRAST, 01/30/2018. . TECHNIQUE: 3D [id number] MRA was performed. Source images, multiplanar STS MIP, and 3D volum e MIP reconstructions were reviewed. FINDINGS: There is excellent visualization of the major intracranial arteries out to the second-order branch ve ssels. Luminal irregularity with mild to moderate stenosis is identified in both cavernous segments of the i nternal carotid arteries. Degree of stenosis is worse on the left. Focal high-grade stenosis is seen at the origin of the left anterior cerebral artery. The middle cerebral arteries are patent without evidence of significant steno-occlusive disease. Mild narrowing is identified in the proximal to mid basilar artery. The left vertebral artery is ahmet nant. Right vertebral artery is small and terminates in height. CONCLUSION: 1. Bilateral cavernous internal carotid artery luminal irregularity and stenosis most characteristic of atherosclerotic disease. There is at least moderate stenosis identified on the left. 2. High-grade focal stenosis at the origin of the left anterior cerebral artery. 3. Mild basilar atherosclerotic disease without significant stenosis. 4. Dominant left vertebral artery. Electronically signed by: Mark Anthony Doty MD 01/30/2018 10:18 AM EST
--- NOTE | 2018-01-30 11:05 | P.HP ---
History of Present Illness Primary Care Physician: Shai Chavez Chief Complaint: hypotension, paresthesias History of Present Illness: 62-year-old male with history of hypertension, hyperlipidemia, type 2 diabetes mellitus, gout, tobacco use, presents with a 2-day history of persistent hypotension and intermittent paresthesias. The patient explains that over the past 2 days he has had persistently low blood pressures, as low as the 70s/40s. He states a few days ago he had some numbness and tingling of his left hand that resolved spontaneously. Last night he was out to dinner with his , did not feel well, had some numbness of his right hand, went home and checked his blood pressure which was again in the 70s/40s. He was lightheaded at the time, denies any loss of consciousness. Patient states he has been holding his lisinopril 40 mg over the past few days because of the low blood pressure. He states he normally has issues with very high blood pressure over 200s prior to being placed on medications in the past. He denies any headache, lightheadedness, visual changes, speech deficit, chest pain, palpitations, shortness of breath, unilateral weakness, or abdominal pain, or diarrhea. He did have some nausea in the ER last night, now resolved. He admits to not drinking much water recently. He takes a baby aspirin daily. He follows with a PCP Dr. Scott Gibbons in [place]. Patient has no other medical complaints at this time. Review of Systems All other systems reviewed negative except as stated in HPI PMFSH - History History Provided By: Patient - Medical History Medical History: Medical History (Last Updated 01/30/18 @ 14:57 by Clara Cueto) COPD (chronic obstructive pulmonary disease) Diabetes HTN (hypertension) History of Alie's gangrene Hx of gangrene Hx of myocardial infarction Hyperlipemia - Surgical History Surgical History: Surgical History (Last Updated 01/30/18 @ 15:12 by Clara Cueto) History of hand surgery History of shoulder surgery History of testicular surgery - Family History Family History: Family History (Last Updated 01/30/18 @ 15:13 by Clara Cueto) Mother Metastatic breast cancer Father Hypertension Father Diabetes - Tobacco History Second Hand Smoke Exposure: No Tobacco Use In Past 30 Days: Yes Smoking Status: Current every day smoker Tobacco Type: Cigarettes, Cigars (5-6 small cigars daily) - Alcohol History How Often Do You Have a Drink Containing Alcohol: 2 to 3 times a week - Substance Use History Substance History: No History of Abuse - Travel History Recent Travel in the [place] Within the Last 8 Weeks: No Recent Travel Out of the Country Within the Last 8 Weeks: No - Immunization History Tetanus Immunization: Unsure Medications and Allergies Active Medications: Active Medications Al Hydroxide/Mg Hydroxide (Milk Of Magnesia Liq) 30 ml PO Q12H PRN PRN Reason: Mild Constipation Bisacodyl (Dulcolax Supp) 10 mg RECTAL DAILY PRN PRN Reason: SEVERE CONSITIPATION Dextrose (D50w Vial) 50 ml IV.PUSH UNSCH PRN PRN Reason: PER HYPOGLYCEMIA PROTOCOL Glucagon (Glucagon Inj) 1 mg OTHER PRN PRN PRN Reason: for Hypoglycemia Protocol Sodium Chloride (Ns Inj) 1,000 mls @ 100 mls/hr IV.CONT .Q10H DANISHA Insulin Aspart (Novolog Insulin Correctional Sugar Inj) 0 unit SQ ACHS DANISHA; Protocol Lactulose (Lactulose Liq) 30 ml PO DAILY PRN PRN Reason: SEVERE CONSITIPATION Senna/Docusate Sodium (Nandini-Colace) 1 tab PO BID DANISHA Sennosides (Senokot) 17.2 mg PO Q12H PRN PRN Reason: Moderate Constipation Sodium Chloride (Ns Flush) 2 ml IV.FLUSH PRN PRN PRN Reason: FLUSH AFTER USING IV ACCESS Allergies Allergy/AdvReac Type Severity Reaction Status Date / Time Penicillins Allergy Severe Verified 08/15/17 10:03 Home Medications Medication Instructions Recorded Confirmed Type Aspir-81 81 mg PO DAILY 01/30/18 01/30/18 History allopurinol 300 mg PO DAILY 01/30/18 01/30/18 History atorvastatin 40 mg PO HS 01/30/18 01/30/18 History cilostazol 100 mg PO BID 01/30/18 01/30/18 History gemfibrozil 600 mg PO HS 01/30/18 01/30/18 History insulin NPH and regular human 35 unit SUBCUT DAILY 01/30/18 01/30/18 History [Novolin 70/30 U-100 Insulin] insulin NPH isoph U-100 human 35 unit SUBCUT HS 01/30/18 01/30/18 History [Novolin N NPH U-100 Insulin] metoprolol succinate 100 mg PO DAILY 01/30/18 01/30/18 History Exam Vital signs: Vital Signs 01/30/18 01:43 EDT 01/30/18 05:48 01/30/18 05:56 Temperature 97.6 F Pulse Rate 81 77 82 Respiratory Rate 16 18 Blood Pressure 129/69 137/64 Pulse Oximetry 98 100 97 01/30/18 06:01 01/30/18 08:27 Temperature Pulse Rate 76 Respiratory Rate 18 Blood Pressure 138/65 Pulse Oximetry 98 97 Intake & Output 01/29/18 01/30/18 01/30/18 19:59 06:59 18:59 Weight Narrative: GENERAL: Well-nourished, well-developed middle-age male patient in [facility]. SKIN: Warm and dry. No rash. HEENT: Normocephalic. Atraumatic. Pupils equal and round. Mucous membranes pink and moist. NECK: Supple. Trachea midline. CARDIOVASCULAR: Regular rate and rhythm. No murmur appreciated. RESPIRATORY: No accessory muscle use. Clear to auscultation. Breath sounds equal bilaterally. GASTROINTESTINAL: Abdomen soft, non-tender, nondistended. Normoactive bowel sounds x4. MUSCULOSKELETAL: No obvious deformities. Extremities without clubbing, cyanosis , or edema. NEUROLOGICAL: Awake and alert. No obvious cranial nerve deficits. Motor grossly within normal limits. Moving all extremities spontaneously. Normal speech. PSYCHIATRIC: Appropriate mood and affect; insight and judgment normal. Results - Labs CBC & Chem 7: 01/31/18 03:12 01/31/18 03:12 Labs: Laboratory Results - last 24 hr 01/30/18 01/30/18 01/30/18 05:54 05:54 05:54 WBC 10.5 RBC 4.41 L Hgb 14.4 Hct 41.1 MCV 93.2 MCH 32.5 MCHC 34.9 RDW 14.4 Plt Count 236 MPV 9.1 Neut % (Auto) 68.1 Lymph % (Auto) 23.1 [place] % (Auto) 6.2 Eos % (Auto) 1.8 Baso % (Auto) 0.8 Neut # (Auto) 7.2 Lymph # (Auto) 2.4 [place] # (Auto) 0.7 Eos # (Auto) 0.2 Baso # (Auto) 0.1 WBC Differential . Differential Comment Auto diff final PT 10.1 INR 1.0 APTT 28.9 Sodium 135 L Potassium 3.8 Chloride 95 L Carbon Dioxide 27.9 Anion Gap 12 BUN 26 H Creatinine 1.74 H Estimated GFR 40 L Random Glucose 123 H Calcium 8.8 Total Creatine Kinase 175 CK-MB (CK-2) 3.6 Troponin I Less than 0.02 L Serum Alcohol 3 - Imaging Impressions Carotid Doppler Study 01/30/18 00:00 CONCLUSION: 1. Right Internal Carotid Artery: Moderate to severe plaque however there is no significant alteration in vascular velocity to indicate a greater than 50% stenosis. 2. Left Internal Carotid Artery: Moderate to severe plaque however there is no significant alteration in vascular velocity to indicate a greater than 50% stenosis. 3. Considering the amount of atherosclerotic vascular disease and symptomatology further evaluation with CTA carotid arteries should be considered. 4. Antegrade flow both vertebral arteries. Head MRI 01/30/18 00:00 CONCLUSION: 1. No evidence of acute infarct, hemorrhage, mass or edema. 2. Cerebral white matter hyperintensities characteristic of mild microvascular ischemic disease. 3. Otherwise normal evaluation. Head MRA 01/30/18 00:00 CONCLUSION: 1. Bilateral cavernous internal carotid artery luminal irregularity and stenosis most characteristic of atherosclerotic disease. There is at least moderate stenosis identified on the left. 2. High-grade focal stenosis at the origin of the left anterior cerebral artery. 3. Mild basilar atherosclerotic disease without significant stenosis. 4. Dominant left vertebral artery. Head CT 01/30/18 05:44 CONCLUSION: Negative CT Head non contrast. . Caprini VTE Risk Assessment Caprini VTE Risk Assessment: Moderate/High Risk (score >= 2) Caprini Risk Assessment Model: Point Value = 1 Point Value = 2 Point Value = 3 Point Value = 5 Age 41-60 Minor surgery BMI > 25 kg/m2 Swollen legs Varicose veins or History of unexplained or recurrent spontaneous Oral contraceptives or hormone replacement Sepsis (< 1 month) Serious lung disease, including pneumonia (< 1 month) Abnormal pulmonary function Acute myocardial infarction Congestive heart failure (< 1 month) History of inflammatory bowel disease Medical patient at bed rest Age 61-74 Arthroscopic surgery Major open surgery (> 45 min) Laparoscopic surgery (> 45 min) Malignancy Confined to bed (> 72 hours) Immobilizing plaster cast Central venous access Age >= 75 History of VTE Family history of VTE Factor V Leiden Prothrombin [id number] Lupus anticoagulant Anticardiolipin antibodies Elevated serum homocysteine Heparin-induced thrombocytopenia Other congenital or acquired thrombophilia Stroke (< 1 month) Elective arthroplasty Hip, pelvis, or leg fracture Acute spinal cord injury (< 1 month) Prophylaxis Regimen: Total Risk Factor Score Risk Level Prophylaxis Regimen 0-1 Low Early ambulation 2 Moderate Order ONE of the following: *Sequential Compression Device (SCD) *Heparin 5000 units SQ BID 3-4 Higher Order ONE of the following medications: *Heparin 5000 units SQ TID *Enoxaparin/Lovenox 40 mg SQ daily (WT < 150 kg, CrCl > 30 mL/min) *Enoxaparin/Lovenox 30 mg SQ daily (WT < 150 kg, CrCl > 10-29 mL/min) *Enoxaparin/Lovenox 30 mg SQ BID (WT < 150 kg, CrCl > 30 mL/min) AND/OR *Sequential Compression Device (SCD) 5 or more Highest Order ONE of the following medications: *Heparin 5000 units SQ TID (Preferred with Epidurals) *Enoxaparin/Lovenox 40 mg SQ daily (WT < 150 kg, CrCl > 30 mL/min) *Enoxaparin/Lovenox 30 mg SQ daily (WT < 150 kg, CrCl > 10-29 mL/min) *Enoxaparin/Lovenox 30 mg SQ BID (WT < 150 kg, CrCl > 30 mL/min) AND *Sequential Compression Device (SCD) Assessment and Plan - Plan 62-year-old male with history of hypertension, hyperlipidemia, type 2 diabetes mellitus, gout, tobacco use, presents with a 2-day history of persistent hypotension and intermittent paresthesias. TIA: patient presented with transient RUE Paresthesias, now resolved, concern for TIA/CVA. -Head CT reviewed, no acute findings -Brain MRI with no acute findings; shows cerebral white matter hyperintensities characteristic of mild microvascular ischemic disease. -Head MRA shows Bilateral cavernous internal carotid artery luminal irregularity and stenosis most characteristic of atherosclerotic disease. There is at least moderate stenosis identified on the left. High-grade focal stenosis at the origin of the left anterior cerebral artery. Mild basilar atherosclerotic disease without significant stenosis. -Carotid U/S shows Right and Left ICA with Moderate to severe plaque however there is no significant alteration in vascular velocity to indicate a greater than 50% stenosis. -Neuro checks, Monitor on telemetry -Continue patient's aspirin -Check Lipid profile, continue patient's statin -Check HgbA1c -Check Echocardiogram -Rule out ACS with serial cardiac enzymes/EKGs -PT/OT Consults -Consult Neurology, appreciate assistance Hypotension with Hx of HTN: likely secondary to antihypertensives in combination with dehydration/BESS -continue to hold patient's lisinopril 40mg daily -BP improved, continue patient's metoprolol XL 100mg daily -Giving IVF hydration -Monitor BP, adjust antihypertensives as needed BESS: Cr 1.7, no reported history of CKD. Suspect secondary to dehydration vs medications -give IVF hydration at 100cc/hr -avoid nephrotoxins -monitor BMP Diabetes Mellitus: chronic -check HgbA1c -Monitor accu-checks and cover with SSI Gout: chronic -continue home meds Tobacco Use: chronic -counseled on cessation -avoid nicotine patch due to vasoconstriction DVT Prophylaxis: heparin sq
[2018-01-30] MEDS: Senna/Docusate Sodium 8.6/50 MG Tablet PO SCH ×2 (11:19→21:10)
[2018-01-30 12:13] LABS: Chol/HDL Ratio 3.52 Ratio; HDL Cholesterol 36.9 mg/dL (40.0-60.0)
[2018-01-30] MEDS: Sod Chloride 0.9% Inj 1,000 ML IV.CONT SCH ×2 (12:45→21:08)
[2018-01-30 12:55] LABS: Hemoglobin A1c 7.4 % (4.3-6.0)
[2018-01-30] MEDS: Insulin NovoLOG Aspart Correctional Sugar Inj SQ SCH ×3 (13:37→21:04)
--- NOTE | 2018-01-30 14:58 | MB ---
cc: Vani Eugene MD DATE: 01/30/2018 REASON FOR CONSULTATION: TIA. HISTORY OF PRESENT ILLNESS: The patient is a 62-year-old man who came in with some right upper extremity tingling that started at 10:00 last night while they were in a restaurant eating. Went home and his checked his blood pressure. Apparently, his blood pressure was 70 to 80 systolic. He came to the emergency room. He vomited once here, still was nauseous. Vitals were normal at that time. The tingling resolved, but the day prior, he had tingling on the opposite side from head to toe lasting for about 30 minutes. He has known history of diabetes, hypertension, hyperlipidemia, COPD. He states he does drink alcohol on the weekends and smokes cigarettes. He does take aspirin every day. ALLERGIES TO MEDICINE: PENICILLIN. PHYSICAL EXAMINATION: VITAL SIGNS: Temperature is 98.1, pulse 78, respiratory rate 16, blood pressure 135/88, saturating at 94%. NECK: Supple. I do not appreciate any bruits. HEART: Regular. NEUROLOGIC: He is awake, alert, fluent. Pupils reactive. Visual gould full. Face symmetrical. Tongue midline. Motor: There is no deficit. No drift or leg lag. Cerebellar normal. Gait: Been ambulating to the bathroom. LABORATORY DATA: Alcohol level of 3. Triglycerides 327, cholesterol 130, LDL 28, HDL 36.9. TSH 1.990. GFR is 40, creatinine 1.74, sodium 135. Coag panel is normal. CBC is really unremarkable. DIAGNOSTIC DATA: His report regarding CT of the head were unremarkable. MRI of the brain: No acute infarct. He does have white matter disease consistent with microvascular disease. [place] shows bilateral cavernous internal carotid artery luminal irregularity and stenosis, most characteristic of atherosclerotic disease at least moderate stenosis on the left. High-grade focal stenosis origin. Left anterior cerebral artery mid vessel atherosclerotic disease without stenosis. Dominant left vertebral artery. Carotid ultrasound shows right ICA moderate to severe plaque; however, there is no significant alteration in vasculature. Velocities indicate greater than 50% stenosis. This is reported to be on the right and on the left and it also states considering the amount of atherosclerotic vascular disease and symptomatology, CTA carotid should be considered. Antegrade flow in both arteries. IMPRESSION/PLAN: Transient ischemic attack-like event in a patient that is a smoker, drinks on the weekends with a history of hyperlipidemia, heart disease, hypertension, with questionable now moderate to severe carotid disease. I would like to do a CT angiogram; however, at this point in time, his GFR is 40, creatinine 1.74. Triglycerides are elevated, may be a factor of his diabetes. His hemoglobin A1c is pending. His LDL is low at 28. He states he takes aspirin daily. We will consider changing him over to Plavix at this point in time. We will consider having vascular surgery to evaluate him as well. Echo was just completed. Continue above recommendations as outlined. Make sure his blood pressure is normal. Further recommendations will be made accordingly. Vani Eugene MD DF/te/do , 12:39 PM , 12:48 PM
--- NOTE | 2018-01-30 15:23 | ECHRPT ---
Indication: CVA/TIA CONCLUSIONS Normal left ventricular size. Wall thickness is normal. The left ventricular systolic function is low normal with an estimated ejection fraction in the rang e of 50- 55%. Mitral annular calcification is present. Aortic valve sclerosis is present. There is mild tricuspid valve regurgitation. The estimated pulmonary arterial pressure is 31 mmHg. BP: / HR: Rhythm: Technical Quality:Technically difficult study FINDINGS LEFT VENTRICLE Normal left ventricular size. Wall thickness is normal. The left ventricular systolic function is low normal with an estimated ejection fraction in the rang e of 50- 55%. Doppler parameters are consistent with impaired left ventricular relaxtion (grade 1 diastolic dysfun ction). RIGHT VENTRICLE Normal right ventricular size and systolic function. LEFT ATRIUM The left atrial size is normal. RIGHT ATRIUM The right atrial size is normal. ATRIAL SEPTUM Normal atrial septal thickness without atrial level shunting by limited color doppler interrogation. AORTA The aortic root and proximal ascending aorta are normal in size on limited imaging. MITRAL VALVE Mitral annular calcification is present. AORTIC VALVE Aortic valve sclerosis is present. TRICUSPID VALVE There is mild tricuspid valve regurgitation. The estimated pulmonary arterial pressure is 31 mmHg. PULMONARY VALVE The pulmonary valve is not well visualized. VESSELS The inferior vena cava is normal in size. PERICARDIUM No pericardial effusion. Nehemias Osuna MD (Electronically Signed) Final Date:30 January 2018 15:23
[2018-01-30 16:30] LABS: Creatine Kinase 134 U/L (39-308)
[2018-01-30 16:42] LABS: Creatine Kinase MB 3.1 ng/mL (0.5-3.6)
[2018-01-30] MEDS: Allopurinol 300 MG Tablet PO SCH (17:28)
[2018-01-30 20:06] LABS: Anion Gap 7 meq/L (5-15); Blood Urea Nitrogen 24 mg/dL (7-18); Chloride 102 meq/L (98-107); Creatine Kinase 138 U/L (39-308); Glomerular Filtration Rate 56 mL/min (>89); Glucose,Random 208 mg/dL (74-106); Potassium 3.7 meq/L (3.5-5.1); Sodium 137 meq/L (136-145)
[2018-01-30 20:24] LABS: Creatine Kinase MB 2.8 ng/mL (0.5-3.6)
[2018-01-30] MEDS: Gemfibrozil 600 MG Tablet PO SCH (21:06)
[2018-01-30] MEDS: Heparin - SQ 10,000 UNITS/ML Vial SQ SCH (21:08)
--- NOTE | 2018-01-30 22:41 | ECG ---
Date Performed: 01/30/2018 Time Performed: 05:54:40 PTAGE: 62 years EKG: Sinus rhythm WITH FIRST DEGREE AV BLOCK INCOMPLETE RIGHT BUNDLE BRANCH BLOCK MILD ST DEPRESSIONS, CONSIDER ISCHEM IA ABNORMAL ECG NO PREVIOUS TRACING DOCTOR: Marcelo Huff Interpretating Date/Time 01/30/2018 22:40:07
[2018-01-31 04:34] LABS: White Blood Count 6.5 th/mm3 (4.0-11.0)
[2018-01-31 04:35] LABS: Baso # (Auto) 0.1 th/mm3 (0.0-0.2); Baso % (Auto) 0.9 % (0.0-2.0); Eos # (Auto) 0.3 th/mm3 (0.0-0.4); Eos % (Auto) 4.5 % (0.0-4.0); Hematocrit 37.3 % (39.0-51.0); Hemoglobin 12.7 gm/dL (13.0-17.0); Lymph # (Auto) 2.2 th/mm3 (1.0-4.8); Lymph % (Auto) 33.8 % (9.0-44.0); Mean Corpuscular Hemoglobin 32.4 pg (27.0-34.0); Mean Corpuscular Volume 95.3 fL (80.0-100.0); Mean Platelet Volume 9.4 fL (7.0-11.0); Mono # (Auto) 0.6 th/mm3 (0.0-0.9); Mono % (Auto) 9.4 % (0.0-8.0); Neut # (Auto) 3.3 th/mm3 (1.8-7.7); Neut % (Auto) 51.4 % (16.0-70.0); Platelet Count 186 th/mm3 (150-450); Red Blood Count 3.91 mil/mm3 (4.50-5.90); Red Cell Distribution Width 14.3 % (11.6-17.2)
[2018-01-31 04:57] LABS: Anion Gap 7 meq/L (5-15); Aspartate Aminotransferase 16 U/L (15-37); Blood Urea Nitrogen 18 mg/dL (7-18); Calcium 8.3 mg/dL (8.5-10.1); Carbon Dioxide 26.7 meq/L (21.0-32.0); Chloride 109 meq/L (98-107); Glomerular Filtration Rate 72 mL/min (>89); Glucose,Random 136 mg/dL (74-106); Sodium 143 meq/L (136-145)
[2018-01-31 04:58] LABS: Alanine Aminotransferase 20 U/L (12-78)
[2018-01-31 05:00] LABS: Alkaline Phosphatase 75 U/L (45-117); Total Protein 6.5 g/dL (6.4-8.2)
[2018-01-31] MEDS: Sod Chloride 0.9% Inj 1,000 ML IV.CONT SCH ×2 (05:45→17:38)
[2018-01-31] MEDS: Allopurinol 300 MG Tablet PO SCH (08:18)
[2018-01-31] MEDS: Heparin - SQ 10,000 UNITS/ML Vial SQ SCH ×2 (08:19→20:46)
[2018-01-31] MEDS: Senna/Docusate Sodium 8.6/50 MG Tablet PO SCH ×3 (08:19→20:54)
[2018-01-31] MEDS: Insulin NovoLOG Aspart Correctional Sugar Inj SQ SCH ×4 (09:26→21:08)
--- NOTE | 2018-01-31 10:10 | P.PN ---
Subjective Interval history: Follow up for hypotension, TIA. The patient reports feeling back to normal today. He denies any lightheadedness, dizziness, chest pain, palpitations, shortness of breath, paresthesias, unilateral weakness, or any other medical complaints at this time. Physical Exam Vital signs: Vital Signs 01/30/18 11:07 01/30/18 16:00 01/30/18 20:07 Temperature 98.1 F 98.7 F 98.3 F Pulse Rate 78 77 84 Respiratory Rate 16 16 18 Blood Pressure 135/88 146/67 H 136/58 L Pulse Oximetry 94 L 96 96 01/31/18 00:00 01/31/18 00:28 01/31/18 04:00 Temperature 98.2 F 98.3 F Pulse Rate 62 76 77 Respiratory Rate 18 18 Blood Pressure 157/74 H 171/70 H Pulse Oximetry 96 95 01/31/18 06:17 01/31/18 08:00 01/31/18 09:00 Temperature 97.7 F Pulse Rate 72 73 Respiratory Rate 18 Blood Pressure 183/76 H Pulse Oximetry 96 98 Intake & Output 01/30/18 01/31/18 01/31/18 18:59 06:59 18:59 Intake Total 1000 / 1000 2289 / 2289 Balance 1000 / 1000 2289 / 2289 Weight 79.379 kg Intake: IV 1000 / 1000 1809 / 1809 NS Inj 1,000 ML @ 100 mls/hr IV 1809 / 1809 .CONT .Q10H DANISHA Rx#:[id number] NS Inj 1,000 ML @ 1000 mls/hr 1000 / 1000 IV.SIG BOLUS DANISHA Rx#:[id number] Oral 480 / 480 Other: # Voids 3 2 Date of Last Bowel Movement 01/30/18 # Bowel Movements 2 Weight On Admission 79.379 kg Narrative: GENERAL: Well-nourished, well-developed middle-aged male patient in [facility] [place]. SKIN: Warm and dry. No rash. HEENT: Normocephalic. Atraumatic. Pupils equal and round. Mucous membranes pink and moist. CARDIOVASCULAR: Regular rate and rhythm. No murmur appreciated. RESPIRATORY: No accessory muscle use. Clear to auscultation. Breath sounds equal bilaterally. GASTROINTESTINAL: Abdomen soft, non-tender, nondistended. Normoactive bowel sounds x4. MUSCULOSKELETAL: No obvious deformities. Extremities without clubbing, cyanosis , or edema. NEUROLOGICAL: Awake and alert. No obvious cranial nerve deficits. Motor grossly within normal limits. 5/5 bilateral upper and lower extremity strength. Normal speech. PSYCHIATRIC: Slightly anxious; insight and judgment normal. Results - Labs CBC & Chem 7: 01/31/18 03:12 01/31/18 03:12 Laboratory Results - last 24 hr 01/30/18 01/30/18 01/30/18 05:54 05:54 05:54 WBC RBC Hgb Hct MCV MCH MCHC RDW Plt Count MPV Neut % (Auto) Lymph % (Auto) [place] % (Auto) Eos % (Auto) Baso % (Auto) Neut # (Auto) Lymph # (Auto) [place] # (Auto) Eos # (Auto) Baso # (Auto) WBC Differential Differential Comment Sodium Potassium Chloride Carbon Dioxide Anion Gap BUN Creatinine Estimated GFR POC Glucose Random Glucose Hemoglobin A1c 7.4 H Calcium Total Bilirubin AST ALT Alkaline Phosphatase Total Creatine Kinase CK-MB (CK-2) Troponin I Total Protein Albumin Triglycerides 327 H Cholesterol 130 LDL Cholesterol, Calc 28 HDL Cholesterol 36.9 L Cholesterol/HDL Ratio 3.52 TSH 1.990 01/30/18 01/30/18 01/30/18 12:34 15:29 17:32 WBC RBC Hgb Hct MCV MCH MCHC RDW Plt Count MPV Neut % (Auto) Lymph % (Auto) [place] % (Auto) Eos % (Auto) Baso % (Auto) Neut # (Auto) Lymph # (Auto) [place] # (Auto) Eos # (Auto) Baso # (Auto) WBC Differential Differential Comment Sodium Potassium Chloride Carbon Dioxide Anion Gap BUN Creatinine Estimated GFR POC Glucose 165 H 239 H Random Glucose Hemoglobin A1c Calcium Total Bilirubin AST ALT Alkaline Phosphatase Total Creatine Kinase 134 CK-MB (CK-2) 3.1 Troponin I Less than 0.02 L Total Protein Albumin Triglycerides Cholesterol LDL Cholesterol, Calc HDL Cholesterol Cholesterol/HDL Ratio TSH 01/30/18 01/30/18 01/31/18 17:56 20:20 03:12 WBC 6.5 RBC 3.91 L Hgb 12.7 L Hct 37.3 L MCV 95.3 MCH 32.4 MCHC 34.0 RDW 14.3 Plt Count 186 MPV 9.4 Neut % (Auto) 51.4 Lymph % (Auto) 33.8 [place] % (Auto) 9.4 H Eos % (Auto) 4.5 H Baso % (Auto) 0.9 Neut # (Auto) 3.3 Lymph # (Auto) 2.2 [place] # (Auto) 0.6 Eos # (Auto) 0.3 Baso # (Auto) 0.1 WBC Differential . Differential Comment Auto diff final Sodium 137 Potassium 3.7 Chloride 102 Carbon Dioxide 28.0 Anion Gap 7 BUN 24 H Creatinine 1.29 Estimated GFR 56 L POC Glucose 182 H Random Glucose 208 H Hemoglobin A1c Calcium 8.0 L D Total Bilirubin AST ALT Alkaline Phosphatase Total Creatine Kinase 138 CK-MB (CK-2) 2.8 Troponin I Less than 0.02 L Total Protein Albumin Triglycerides Cholesterol LDL Cholesterol, Calc HDL Cholesterol Cholesterol/HDL Ratio TSH 01/31/18 01/31/18 03:12 07:25 WBC RBC Hgb Hct MCV MCH MCHC RDW Plt Count MPV Neut % (Auto) Lymph % (Auto) [place] % (Auto) Eos % (Auto) Baso % (Auto) Neut # (Auto) Lymph # (Auto) [place] # (Auto) Eos # (Auto) Baso # (Auto) WBC Differential Differential Comment Sodium 143 Potassium 4.0 Chloride 109 H Carbon Dioxide 26.7 Anion Gap 7 BUN 18 Creatinine 1.04 Estimated GFR 72 L POC Glucose 160 H Random Glucose 136 H Hemoglobin A1c Calcium 8.3 L Total Bilirubin 0.4 AST 16 ALT 20 Alkaline Phosphatase 75 Total Creatine Kinase CK-MB (CK-2) Troponin I Total Protein 6.5 Albumin 3.0 L Triglycerides Cholesterol LDL Cholesterol, Calc HDL Cholesterol Cholesterol/HDL Ratio TSH - Imaging Impressions Head MRI 01/30/18 00:00 CONCLUSION: 1. No evidence of acute infarct, hemorrhage, mass or edema. 2. Cerebral white matter hyperintensities characteristic of mild microvascular ischemic disease. 3. Otherwise normal evaluation. Head MRA 01/30/18 00:00 CONCLUSION: 1. Bilateral cavernous internal carotid artery luminal irregularity and stenosis most characteristic of atherosclerotic disease. There is at least moderate stenosis identified on the left. 2. High-grade focal stenosis at the origin of the left anterior cerebral artery. 3. Mild basilar atherosclerotic disease without significant stenosis. 4. Dominant left vertebral artery. - Procedures None Assessment and Plan - Plan 62-year-old male with history of hypertension, hyperlipidemia, type 2 diabetes mellitus, gout, tobacco use, presents with a 2-day history of persistent hypotension and intermittent paresthesias. TIA: patient presented with transient RUE Paresthesias, now resolved, concern for TIA/CVA. -Head CT reviewed, no acute findings -Brain MRI with no acute findings; shows cerebral white matter hyperintensities characteristic of mild microvascular ischemic disease. -Head MRA shows Bilateral cavernous internal carotid artery luminal irregularity and stenosis most characteristic of atherosclerotic disease. There is at least moderate stenosis identified on the left. High-grade focal stenosis at the origin of the left anterior cerebral artery. Mild basilar atherosclerotic disease without significant stenosis. -Carotid U/S shows Right and Left ICA with Moderate to severe plaque however there is no significant alteration in vascular velocity to indicate a greater than 50% stenosis. -Neuro checks, Monitor on telemetry -Continue patient's aspirin -Lipid profile with triglycerides 327, LDL 28, HDL 37, continue patient's statin and gemfibrozil -HgbA1c 7.4, continue SSI -Echocardiogram wnl with EF 50-55% -Ruled out ACS with negative serial cardiac enzymes and EKG without acute ischemic changes -PT/OT Consulted, no PT needed at discharge -Consult Neurology, appreciate assistance, added plavix to the patient's aspirin -Checking Carotid CTA today (renal function improved) Hypotension with Hx of HTN: likely secondary to antihypertensives in combination with dehydration/BESS -held patient's lisinopril 40mg daily -BP improved, continue patient's metoprolol XL 100mg daily -Giving IVF hydration -Monitor BP, adjust antihypertensives as needed -BP persistently elevated, will restart lisinopril at lower dose of 10mg daily, increase as needed BESS: Cr 1.7, no reported history of CKD. Suspect secondary to dehydration vs medications -give IVF hydration at 100cc/hr -avoid nephrotoxins -monitor BMP, much improved, Cr 1.04 Diabetes Mellitus: chronic -HgbA1c 7.4 -Monitor accu-checks and cover with SSI Gout: chronic -continue home meds Tobacco Use: chronic -counseled on cessation -avoid nicotine patch due to vasoconstriction DVT Prophylaxis: heparin sq Discharge Planning: Await carotid CTA and neurology clearance.
[2018-01-31] MEDS: Lisinopril 10 MG Tablet PO SCH (12:52)
--- NOTE | 2018-01-31 12:52 | P.PN ---
Subjective Interval history: no new issues will have cta ca and added cta cow Physical Exam Vital signs: Vital Signs 01/30/18 16:00 01/30/18 20:07 01/31/18 00:00 Temperature 98.7 F 98.3 F Pulse Rate 77 84 62 Respiratory Rate 16 18 Blood Pressure 146/67 H 136/58 L Pulse Oximetry 96 96 01/31/18 00:28 01/31/18 04:00 01/31/18 06:17 Temperature 98.2 F 98.3 F Pulse Rate 76 77 Respiratory Rate 18 18 Blood Pressure 157/74 H 171/70 H Pulse Oximetry 96 95 96 01/31/18 08:00 01/31/18 09:00 01/31/18 12:00 Temperature 97.7 F 97.6 F Pulse Rate 72 73 67 Respiratory Rate 18 18 Blood Pressure 183/76 H 168/79 H Pulse Oximetry 98 97 Intake & Output 01/30/18 01/31/18 01/31/18 18:59 06:59 18:59 Intake Total 1000 / 1000 2289 / 2289 Balance 1000 / 1000 2289 / 2289 Weight 79.379 kg Intake: IV 1000 / 1000 1809 / 1809 NS Inj 1,000 ML @ 100 mls/hr IV 1809 / 1809 .CONT .Q10H DANISHA Rx#:[id number] NS Inj 1,000 ML @ 1000 mls/hr 1000 / 1000 IV.SIG BOLUS DANISHA Rx#:[id number] Oral 480 / 480 Other: # Voids 3 2 Date of Last Bowel Movement 01/30/18 # Bowel Movements 2 Weight On Admission 79.379 kg - Constitutional no acute distress - Routine HEENT Exam Head: Present: normocephalic Eye: Present: EOMI - Routine Neck Exam Present: supple - Routine Cardiovascular Exam Present: RRR - Routine Neurological Exam Present: alert, oriented X3, CN II-XII intact, moving all extremities, normal speech Results - Labs CBC & Chem 7: 01/31/18 03:12 01/31/18 03:12 Laboratory Results - last 24 hr 01/30/18 01/30/18 01/30/18 05:54 15:29 17:32 WBC RBC Hgb Hct MCV MCH MCHC RDW Plt Count MPV Neut % (Auto) Lymph % (Auto) [place] % (Auto) Eos % (Auto) Baso % (Auto) Neut # (Auto) Lymph # (Auto) [place] # (Auto) Eos # (Auto) Baso # (Auto) WBC Differential Differential Comment Sodium Potassium Chloride Carbon Dioxide Anion Gap BUN Creatinine Estimated GFR POC Glucose 239 H Random Glucose Hemoglobin A1c 7.4 H Calcium Total Bilirubin AST ALT Alkaline Phosphatase Total Creatine Kinase 134 CK-MB (CK-2) 3.1 Troponin I Less than 0.02 L Total Protein Albumin 01/30/18 01/30/18 01/31/18 17:56 20:20 03:12 WBC 6.5 RBC 3.91 L Hgb 12.7 L Hct 37.3 L MCV 95.3 MCH 32.4 MCHC 34.0 RDW 14.3 Plt Count 186 MPV 9.4 Neut % (Auto) 51.4 Lymph % (Auto) 33.8 [place] % (Auto) 9.4 H Eos % (Auto) 4.5 H Baso % (Auto) 0.9 Neut # (Auto) 3.3 Lymph # (Auto) 2.2 [place] # (Auto) 0.6 Eos # (Auto) 0.3 Baso # (Auto) 0.1 WBC Differential . Differential Comment Auto diff final Sodium 137 Potassium 3.7 Chloride 102 Carbon Dioxide 28.0 Anion Gap 7 BUN 24 H Creatinine 1.29 Estimated GFR 56 L POC Glucose 182 H Random Glucose 208 H Hemoglobin A1c Calcium 8.0 L D Total Bilirubin AST ALT Alkaline Phosphatase Total Creatine Kinase 138 CK-MB (CK-2) 2.8 Troponin I Less than 0.02 L Total Protein Albumin 01/31/18 01/31/18 01/31/18 03:12 07:25 12:31 WBC RBC Hgb Hct MCV MCH MCHC RDW Plt Count MPV Neut % (Auto) Lymph % (Auto) [place] % (Auto) Eos % (Auto) Baso % (Auto) Neut # (Auto) Lymph # (Auto) [place] # (Auto) Eos # (Auto) Baso # (Auto) WBC Differential Differential Comment Sodium 143 Potassium 4.0 Chloride 109 H Carbon Dioxide 26.7 Anion Gap 7 BUN 18 Creatinine 1.04 Estimated GFR 72 L POC Glucose 160 H 248 H Random Glucose 136 H Hemoglobin A1c Calcium 8.3 L Total Bilirubin 0.4 AST 16 ALT 20 Alkaline Phosphatase 75 Total Creatine Kinase CK-MB (CK-2) Troponin I Total Protein 6.5 Albumin 3.0 L - Procedures to have cta of carotids if abnl consult vascular (ulcerative plaque or >70% stenosis)will also have cta cow cont baby asa 81mg for 3 mos w/plavix 75mg qd-after 3 months can stop baby asa and stay on plavix. needs to stop smoking and drinking f/u pcp post dc. call me w/any questions.
--- NOTE | 2018-01-31 15:19 | CT ---
EXAM DATE: 01/31/2018 2:53 PM EST AGE/SEX: 62 years / Male INDICATIONS: Abnormality on other exam, evaluate for stenosis. CLINICAL DATA: This is the patient's initial encounter. Patient reports that signs and symptoms have been present for 1 day and indicates a pain score of 0/10. MEDICAL/SURGICAL HISTORY: Hypertension. Myocardial infarction. Chronic obstructive pulmonary dise ase. Diabetes. None. RADIATION DOSE: 10.23 CTDI (mGy) ; Combined studies COMPARISON: No prior exams available for comparison. TECHNIQUE: Volumetric scanning was performed using a multirow detector CT scanner during bolus infus ion of 95 ml Omnipaque 350 (iohexol) nonionic water-soluble contrast as a cumulative dose for multip le exams. The data was postprocessed with a variety of visualization algorithms including full-volu me maximum intensity projection, multiplanar sliding thin-slab reformation, curved-planar reformation , and surface-rendering techniques. Using automated exposure control and adjustment of the mA and/or kV according to patient size, radiation dose was kept as low as reasonably achievable to obtain opti mal diagnostic quality images. DICOM format image data is available electronically for review and co mparison. FINDINGS: Aortic Arch: Significant calcified plaque is noted along the aortic arch extending into the great ve ssels. There is moderate stenosis at the origin of the innominate artery measuring approximately 50%. Focal narrowing is noted at the origin of the left common carotid artery which measures in the 50-69 % range. The origin of the left subclavian is patent without significant stenosis. Right Carotid: Moderate eccentric calcified plaque is identified throughout the right common carotid artery, right carotid bifurcation and proximal internal carotid artery. There is evidence of moderat e stenosis approaching 50%. There is no evidence of high-grade stenotic lesions. Left Carotid: Eccentric calcified plaque is identified in the left common carotid artery. There is h eavily calcified plaque at the left carotid bifurcation. Moderate stenosis is seen at the origin of t he internal carotid artery which is less than 50%. Vertebrals: The vertebral arteries are asymmetric in size. The left vertebral artery is dominant. Jim th vertebral arteries demonstrate luminal irregularity with eccentric plaquing. There is no evidence of high-grade stenosis involving the left vertebral artery. The origin of the right vertebral artery is not well seen. Percent stenosis is calculated using the diameter of the stenotic region over the diameter of the nor mal distal internal carotid artery. CONCLUSION: 1. Significant calcific atherosclerotic disease along the aortic arch with moderate stenosis of the innominate origin and moderate to severe stenosis at the origin of the left common carotid artery whi ch is in the 50-69% range. 2. Bilateral calcified carotid plaques with evidence of moderate stenosis in the 30-49% range. 3. No evidence of high-grade carotid bifurcation stenosis. 4. Asymmetric size of the vertebral arteries with the left vertebral artery being dominant. Electronically signed by: Mark Anthony Doty MD 01/31/2018 3:18 PM EST
[2018-01-31] MEDS: Gemfibrozil 600 MG Tablet PO SCH (20:47)
--- NOTE | 2018-01-31 21:24 | ECG ---
Date Performed: 01/30/2018 Time Performed: 18:25:16 PTAGE: 62 years EKG: SR REVERSED LEADS ABNORMAL ECG PREVIOUS TRACING : 01/30/2018 14.03 DOCTOR: Amari Duncan Interpretating Date/Time 01/31/2018 21:23:18
--- NOTE | 2018-01-31 21:39 | ECG ---
Date Performed: 01/30/2018 Time Performed: 14:03:50 PTAGE: 62 years EKG: Sinus rhythm WITH FIRST DEGREE AV BLOCK NONSPECIFIC ST & T-WAVE ABNORMALITY ABNORMAL ECG PREVIOUS TRACING : 01/30/2018 05.54 Since the previous tracing, no significant change noted DOCTOR: Amari Duncan Interpretating Date/Time 01/31/2018 21:37:56
--- NOTE | 2018-01-31 22:17 | CT ---
EXAM DATE: 01/31/2018 1:57 PM EST AGE/SEX: 62 years / Male INDICATIONS: CLINICAL DATA: This is the patient's encounter. Patient reports that signs and symptoms have been pr esent for and indicates a pain score of . MEDICAL/SURGICAL HISTORY: RADIATION DOSE: CTDI (mGy) COMPARISON: [facility], MRA HEAD W/O CONTRAST, 01/30/2018. [facility], MR HEAD W/O CONTRAST, 01/30/2018. . TECHNIQUE: Volumetric scanning was performed using a multi-row detector CT scanner during bolus infu arie of ml nonionic water-soluble contrast as a . The data was post processed with a variety of vis ualization algorithms including full volume maximum intensity projection, multi-planar sliding thin s lab reformation, curved planar reformation, and surface rendering techniques. Using automated exposu re control and adjustment of the mA and/or kV according to patient size, radiation dose was kept as l ow as reasonably achievable to obtain optimal diagnostic quality images. DICOM format image data is available electronically for review and comparison. FINDINGS: There is excellent visualization of the major intracranial arteries out to the second-order branch ve ssels. Focal nonfilling again seen proximally of the left A1 segment. The bilateral A2 and distal seg ments fill normally. Anterior communicating artery is patent. There is no evidence for aneurysm, oth er vessel truncation or stenosis, and no evidence for vascular malformation. CONCLUSION: 1. A1 segment of the left anterior cerebral artery has short segment nonfilling, probably a combinat ion of thrombosis superimposed on atherosclerosis. A2 and distal segments fill normally bilaterally p atent anterior communicating artery. 2. No other acute abnormalities are seen of the intracranial arteries. Electronically signed by: Christian Cates MD 01/31/2018 10:15 PM EST
[2018-02-01 03:57] VITALS: PULSE 64
[2018-02-01] MEDS: Sod Chloride 0.9% Inj 1,000 ML IV.CONT SCH (04:43)
[2018-02-01] MEDS: Lisinopril 10 MG Tablet PO SCH (08:34)
[2018-02-01] MEDS: Allopurinol 300 MG Tablet PO SCH (08:34)
[2018-02-01] MEDS: Senna/Docusate Sodium 8.6/50 MG Tablet PO SCH (08:34)
[2018-02-01] MEDS: Heparin - SQ 10,000 UNITS/ML Vial SQ SCH (08:34)
[2018-02-01] MEDS: Insulin NovoLOG Aspart Correctional Sugar Inj SQ SCH (08:38)
[2018-02-01 08:55] VITALS: RESP 18; TEMP 97.4; O2SAT 98
--- NOTE | 2018-02-01 09:47 | P.DS ---
Date of admission: 01/30/18 07:50 Primary care physician: Shai Chavez Brief History from admission: HPI as documented by the admitting provider. 62-year-old male with history of hypertension, hyperlipidemia, type 2 diabetes mellitus, gout, tobacco use, presents with a 2-day history of persistent hypotension and intermittent paresthesias. The patient explains that over the past 2 days he has had persistently low blood pressures, as low as the 70s/40s. He states a few days ago he had some numbness and tingling of his left hand that resolved spontaneously. Last night he was out to dinner with his , did not feel well, had some numbness of his right hand, went home and checked his blood pressure which was again in the 70s/40s. He was lightheaded at the time, denies any loss of consciousness. Patient states he has been holding his lisinopril 40 mg over the past few days because of the low blood pressure. He states he normally has issues with very high blood pressure over 200s prior to being placed on medications in the past. He denies any headache, lightheadedness, visual changes, speech deficit, chest pain, palpitations, shortness of breath, unilateral weakness, or abdominal pain, or diarrhea. He did have some nausea in the ER last night, now resolved. He admits to not drinking much water recently. He takes a baby aspirin daily. He follows with a PCP Dr. Scott Gibbons in [place]. Patient has no other medical complaints at this time. Patient update on day of discharge: Patient reports he is feeling great. He denies any new neurological issues. Feels back to normal. Eager to go home. DS: Medications - Discharge Medications Prescriptions: clopidogrel [Plavix] 75 mg PO DAILY 30 Days #30 tab lisinopril 20 mg PO DAILY #30 tab DS: Summary Hospital Course: 62-year-old male with history of hypertension, hyperlipidemia, type 2 diabetes mellitus, gout, tobacco use, presents with a 2-day history of persistent hypotension and intermittent paresthesias. Evaluation and treatment course detailed below: TIA: patient presented with transient RUE Paresthesias, now resolved, concern for TIA/CVA. Patient was evaluated and followed by neuro- -Head CT reviewed, no acute findings -Brain MRI with no acute findings; shows cerebral white matter hyperintensities characteristic of mild microvascular ischemic disease. -Head MRA shows Bilateral cavernous internal carotid artery luminal irregularity and stenosis most characteristic of atherosclerotic disease. There is at least moderate stenosis identified on the left. High-grade focal stenosis at the origin of the left anterior cerebral artery. Mild basilar atherosclerotic disease without significant stenosis. -Carotid U/S shows Right and Left ICA with Moderate to severe plaque however there is no significant alteration in vascular velocity to indicate a greater than 50% stenosis. -Neck CTA results as noted above with moderate carotid stenosis. -The patient is advised to follow-up outpatient with vascular surgery for close monitoring of carotid stenosis. -Concern his symptoms may be also due to hypotension. Antihypertensives initially held. He is blood pressure improved. Metoprolol resumed and lisinopril restarted at half the dose. -Per neurology recommendations, the patient is discharged on aspirin and Plavix. He can discontinue aspirin after 3 months and continue on Plavix. The patient's symptoms completely resolved. He was extensively counseled to quit using tobacco and alcohol. Hypotension with Hx of HTN: likely secondary to antihypertensives in combination with dehydration/BESS -held patient's lisinopril 40mg daily -BP improved, continue patient's metoprolol XL 100mg daily -Blood pressure improved, patient restarted on lisinopril at lower dose of 20mg daily BESS: Cr 1.7, no reported history of CKD. Suspect secondary to dehydration vs medications -give IVF hydration at 100cc/hr -Renal functions improved. Diabetes Mellitus: chronic -HgbA1c 7.4 -Monitor accu-checks and cover with SSI. Resume home medications on discharge. Gout: chronic -continue home meds Tobacco Use: chronic -counseled on cessation - Time Spent with Patient Total time spent providing and/or coordinating discharge services: Less than 30 minutes - Quality: VTE Deep Vein Thrombosis/Pulmonary Embolism Present on Admission: No Exam Vital signs: Vital Signs 01/31/18 12:00 01/31/18 16:00 01/31/18 17:41 Temperature 97.6 F 97.9 F Pulse Rate 67 63 Respiratory Rate 18 18 Blood Pressure 168/79 H 173/79 H 153/79 H Pulse Oximetry 97 98 01/31/18 20:00 01/31/18 21:00 02/01/18 00:00 Temperature 98.2 F 97.8 F Pulse Rate 67 65 65 Respiratory Rate 19 18 Blood Pressure 163/75 H 187/79 H Pulse Oximetry 97 97 02/01/18 03:54 02/01/18 08:00 Temperature 97.6 F 97.4 F L Pulse Rate 64 64 Respiratory Rate 20 18 Blood Pressure 189/88 H 182/81 H Pulse Oximetry 96 98 Intake & Output 01/31/18 02/01/18 02/01/18 18:59 06:59 18:59 Intake Total 1250 / 1250 1800 / 1800 Balance 1250 / 1250 1800 / 1800 Intake: IV 1000 / 1000 1000 / 1000 NS Inj 1,000 ML @ 100 mls/hr IV 1000 / 1000 1000 / 1000 .CONT .Q10H DANISHA Rx#:[id number] Oral 250 / 250 800 / 800 Other: # Voids 2 Date of Last Bowel Movement 01/30/18 Narrative: GENERAL: This is a well-nourished, well-developed patient, in no apparent distress. CARDIOVASCULAR: Normal rate and regular rhythm without murmurs, gallops, or rubs. RESPIRATORY: Good respiratory efforts. Breath sounds equal and clear to auscultation bilaterally. GASTROINTESTINAL: Abdomen soft, non-tender, non-distended. Normal active bowel sounds MUSCULOSKELETAL: Extremities without cyanosis, or edema. NEURO: Alert & Oriented x4 to person, place, time, situation. Moves all ext x4 PSYCH: Appropriate mood and affect. Results Procedures completed during hospitalization: None Labs on day of discharge: Labs from last 24 hours 02/01/18 01/31/18 01/31/18 08:36 20:52 17:25 POC Glucose 148 H 217 H 99 01/31/18 12:31 POC Glucose 248 H - Impressions ITS Impressions Carotid Doppler Study 01/30/18 00:00 CONCLUSION: 1. Right Internal Carotid Artery: Moderate to severe plaque however there is no significant alteration in vascular velocity to indicate a greater than 50% stenosis. 2. Left Internal Carotid Artery: Moderate to severe plaque however there is no significant alteration in vascular velocity to indicate a greater than 50% stenosis. 3. Considering the amount of atherosclerotic vascular disease and symptomatology further evaluation with CTA carotid arteries should be considered. 4. Antegrade flow both vertebral arteries. Head MRI 01/30/18 00:00 CONCLUSION: 1. No evidence of acute infarct, hemorrhage, mass or edema. 2. Cerebral white matter hyperintensities characteristic of mild microvascular ischemic disease. 3. Otherwise normal evaluation. Head MRA 01/30/18 00:00 CONCLUSION: 1. Bilateral cavernous internal carotid artery luminal irregularity and stenosis most characteristic of atherosclerotic disease. There is at least moderate stenosis identified on the left. 2. High-grade focal stenosis at the origin of the left anterior cerebral artery. 3. Mild basilar atherosclerotic disease without significant stenosis. 4. Dominant left vertebral artery. Head CT 01/30/18 05:44 CONCLUSION: Negative CT Head non contrast. . Head CTA 01/31/18 00:00 CONCLUSION: 1. A1 segment of the left anterior cerebral artery has short segment nonfilling , probably a combination of thrombosis superimposed on atherosclerosis. A2 and distal segments fill normally bilaterally patent anterior communicating artery. 2. No other acute abnormalities are seen of the intracranial arteries. Neck CTA 01/31/18 00:00 CONCLUSION: 1. Significant calcific atherosclerotic disease along the aortic arch with moderate stenosis of the innominate origin and moderate to severe stenosis at the origin of the left common carotid artery which is in the 50-69% range. 2. Bilateral calcified carotid plaques with evidence of moderate stenosis in the 30-49% range. 3. No evidence of high-grade carotid bifurcation stenosis. 4. Asymmetric size of the vertebral arteries with the left vertebral artery being dominant. Discharge Plan - Discharge Disposition Patient Disposition: 01 Discharge Home - Discharge Condition Condition: Stable - Discharge Order Discharge Orders: Discharge Order (Routine); Ordered 02/01/18 Ordered By: Bill Anglin - Discharge Details Anticipated Discharge Date: 01/31/18 Discharge Comment: - Physicians Team Primary Care Provider: Shai Chavez Attending Provider: Bill Anglin Other Providers: Vani Eugene MD
[2018-02-01 09:51] VITALS: BP 162/87
== END 2018-02-01 11:00 | disposition home or self-care (01) ==
LOC: NEDA 01:37 → NEPE 01:37 → NEPFCDU 10:12
PROVIDERS: ADMIT Family Medicine; ATTEND Family Medicine